=== PATIENT | male | born 2000 | race Caucasian/White ===

== ENCOUNTER 2022-03-14 18:32 | Inpatient (IN) ==
[2022-03-14 19:27] LABS: Bilirubin,Urine Negative (Negative); Blood,Urine Negative (Negative); Clarity,Urine Clear (Clear); Color,Urine Colorless (Yellow); Glucose,Urine (UA) Normal (Normal); Ketones,Urine Negative (Negative); Leukocyte Esterase,Urine Negative (Negative); Nitrite,Urine Negative (Negative); Protein,Urine Negative (Neg-Trace); Specific Gravity,Urine 1.009 (1.010-1.025); Urobilinogen,Urine Normal (Normal)
[2022-03-14 19:35] LABS: Basophils # 0.1 K/mcL (0.0-0.2); Basophils % 0.7 %; Eosinophils # 0.1 K/mcL (0.0-0.6); Eosinophils % 1.4 %; Hematocrit 42.8 % (37.5-50.1); Immature Granulocytes % 0.1 % (0-4); Lymphocytes # 1.9 K/mcL (0.6-4.6); Lymphocytes % 27.2 %; Mean Corpuscular Hemoglobin 30.5 pg (28.0-33.3); Mean Corpuscular Volume 87.2 fL (83.0-100.0); Mean Platelet Volume 9.3 fL (9.4-12.4); Monocytes # 0.7 K/mcL (0.0-1.3); Monocytes % 9.8 %; Neutrophils # 4.2 K/mcL (1.6-8.9); Platelet Count 212 K/mcL (140-400); Red Blood Count 4.91 M/mcL (4.19-5.50); Red Cell Distribution Width 11.4 % (11.5-14.5); Segmented Neutrophils % 60.8 %; White Blood Count 6.9 K/mcL (4.3-11.1)
[2022-03-14 19:46] LABS: Estimated Average Glucose 91 mg/dl; Hemoglobin A1C 4.8 %
[2022-03-14 20:05] LABS: Acetaminophen < 10 mcg/mL (10-20); BUN/Creatinine Ratio 17 (6-26); Blood Urea Nitrogen 16 mg/dL (6-20); Calcium 9.6 mg/dL (8.6-10.3); Carbon Dioxide 20 mEq/L (23-29); Chloride 108 mEq/L (98-107); Chol/HDL Ratio 4.2 (0-4.9); Cholesterol 189 mg/dL (< 200); Ethanol < 10 mg/dL (Less than 10); Glucose 90 mg/dL (70-105); HDL Cholesterol 45 mg/dL (40-59); LDL Cholesterol,Calculated 108 mg/dL (< 100); Osmolality,Calculated 291 (280-300); Salicylate < 2.5 mg/dL (15.0-30.0); Sodium 140 mEq/L (136-145); Triglycerides 180 mg/dL (< 150)
[2022-03-14 20:13] LABS: Amphetamine Screen,Urine Negative ng/mL (Cutoff=1000); Barbiturate Screen,Urine Negative ng/mL (Cutoff=200); Benzodiazepines Screen,Urine Negative ng/mL (Cutoff=200); Cannabinoid Screen,Urine Positive ng/mL (Cutoff = 50); Cocaine Screen,Urine Negative ng/mL (Cutoff= 300); Opiate Screen,Urine Negative ng/mL (Cutoff=300); Phencyclidine Screen,Urine Negative ng/mL (Cutoff=25)
[2022-03-14 23:19] LABS: Influenza A PCR Negative (Negative); Influenza B PCR Negative (Negative); Resp. Syncytial Virus PCR Negative (Negative); SARS-CoV-2 by PCR (In House) Negative (Negative)
[2022-03-14] MEDS ORDERED: *HR* LORazepam 2 MG/ML VIAL IM PRN (23:59)
[2022-03-14] MEDS ORDERED: traZODone 50 MG TABLET PO PRN (23:59)
[2022-03-14] MEDS ORDERED: Acetaminophen 325 MG TABLET PO PRN (23:59)
[2022-03-14] MEDS ORDERED: Haloperidol Lactate 5 MG/ML VIAL IM PRN (23:59)
[2022-03-14] MEDS ORDERED: *HR* LORazepam 1 MG TABLET PO PRN (23:59)
[2022-03-14] MEDS ORDERED: haloperidoL 5 MG TABLET PO PRN (23:59)
[2022-03-14] MEDS ORDERED: hydrOXYzine pamoate 25 MG CAPSULE PO PRN (23:59)
[2022-03-15] MEDS: Nicotine 2 MG GUM BC PRN ×2 (11:30→17:24)
[2022-03-15] MEDS ORDERED: Mag Hydrox/Al Hydrox/Simeth 30 ML UDC PO PRN (14:36)
[2022-03-15] MEDS ORDERED: MOM Conc 10 ML UD.LIQ PO PRN (14:36)
[2022-03-16] MEDS: Nicotine 2 MG GUM BC PRN ×3 (08:28→17:03)
[2022-03-16] MEDS ORDERED: Ibuprofen 800 MG TABLET PO PRN (10:11)
[2022-03-17] MEDS: Nicotine 2 MG GUM BC PRN ×2 (09:07→16:13)
[2022-03-18] MEDS: Nicotine 2 MG GUM BC PRN (09:01)
[2022-03-18 10:03] VITALS: BP 139/97; PULSE 84; TEMP 97; O2SAT 100
== END 2022-03-18 18:35 | disposition home or self-care (01) | DRG 754 ==
LOC: EMEROOARM 18:32 → 1ANU 23:40
PROVIDERS: ADMIT Psychiatry & Neurology Psychiatry; ATTEND Psychiatry & Neurology Psychiatry